=== PATIENT | female | born 1950 | race Caucasian/White ===

== ENCOUNTER 2021-02-15 12:12 | Inpatient (IN) | payer MEDICARE, OTHER ==
[~2021-02-15] VITALS: Ht 175.3 cm; Wt 117.0 kg
[~2021-02-15 12:12] MED LIST: BETAPACE80 MG PO; BUSPIRONE HCL15 MG PO; CARTIA XT120 MG PO; COZAAR50 MG PO; DULOXETINE HCL60 MG PO; ELIQUIS5 MG PO; ISOSORBIDE MONO60 MG PO; LASIX20 MG PO; LIPITOR40 M1 PO; METFORMIN HCL500 MG PO; SOTALOL80 MG PO
[2021-02-15 12:52] LABS: BASOPHIL 0.8 % (0-2); EOSINOPHIL 1.4 % (0-7); HCT 45.6 % (37.0-47.0); LYMPHOCYTE 14.4 % (15-48); MCH 23.5 pg (25.0-31.0); MCHC 30.7 g/dL (32.0-36.0); MCV 76.4 fL (78.0-100.0); MPV 10.3 fL (6.0-9.5); NEUTROPHIL 75.8 % (41-80); NRBC 0; PLT 383 K/uL (150-400); RBC 5.97 M/uL (4.20-5.40); RDW 16.4 % (11.5-14.0); WBC 11.1 K/uL (4.0-10.5)
[2021-02-15 12:57] LABS: INR 1.45 (0.9-1.2); PROTHROMBIN TIME 16.9 SECONDS (11.8-13.4); PTT 35.1 SECONDS (24.4-34.7)
[2021-02-15 13:17] LABS: ALBUMIN 3.9 g/dL (3.4-5.0); BILIRUBIN - TOTAL 1.6 mg/dL (0.2-1.0); BUN/CREAT RATIO (CALC) 19.1 RATIO; CREATININE 1.41 mg/dL (0.51-0.95); GLOBULIN (CALCULATION) 2.8 g/dL; POTASSIUM 3.3 mmol/L (3.5-5.1); TOTAL PROTEIN 6.7 g/dL (6.4-8.2)
[2021-02-15 18:02] LABS: CORONAVIRUS 2019 SARS-COV-2 NEGATIVE (NEGATIVE); INFLUENZA A NAA NEGATIVE (NEGATIVE)
[2021-02-16 11:01] LABS: BASOPHIL 0.8 % (0-2); EOSINOPHIL 1.8 % (0-7); HCT 41.3 % (37.0-47.0); HGB 12.9 g/dl (12.5-16.0); LYMPHOCYTE 21.5 % (15-48); MCH 23.4 pg (25.0-31.0); MCHC 31.2 g/dL (32.0-36.0); MONOCYTE 10.7 % (0-12); MPV 10.3 fL (6.0-9.5); NEUTROPHIL 64.5 % (41-80); NRBC 0; PLT 343 K/uL (150-400); RBC 5.51 M/uL (4.20-5.40); RDW 16.5 % (11.5-14.0); WBC 7.6 K/uL (4.0-10.5)
[2021-02-16 11:48] LABS: BUN/CREAT RATIO (CALC) 22.8 RATIO; CREATININE 1.23 mg/dL (0.51-0.95); FT4 (FREE T4) 1.2 ng/dL (0.76-1.46)
[2021-02-17 06:01] LABS: BASOPHIL 0.9 % (0-2); EOSINOPHIL 3.3 % (0-7); HGB 11.1 g/dl (12.5-16.0); LYMPHOCYTE 28.1 % (15-48); MCH 23.4 pg (25.0-31.0); MCHC 30.8 g/dL (32.0-36.0); MCV 75.9 fL (78.0-100.0); MONOCYTE 12.2 % (0-12); MPV 10.8 fL (6.0-9.5); NRBC 0; PLT 281 K/uL (150-400); RBC 4.74 M/uL (4.20-5.40); RDW 16.2 % (11.5-14.0); WBC 7.9 K/uL (4.0-10.5)
[2021-02-17 06:26] LABS: BUN/CREAT RATIO (CALC) 22.5 RATIO; CREATININE 1.38 mg/dL (0.51-0.95); POTASSIUM 3.8 mmol/L (3.5-5.1)
== END 2021-02-17 20:00 | disposition other institution (70) | DRG 309 ==
LOC: FER 12:12 → FTCU 02-16 03:18
PROVIDERS: Emergency Medicine; Family Medicine; Hospitalist; ADMIT Internal Medicine
DX: I48.19 Other persistent atrial fibrillation (principal); N17.9 Acute kidney failure, unspecified; Z20.822 Contact with and (suspected) exposure to COVID-19; I12.9 Hypertensive chronic kidney disease with stage 1 through stage 4 chronic kidney disease, or unspecified chronic kidney disease; N18.30 Chronic kidney disease, stage 3 unspecified; R73.03 Prediabetes; E27.8 Other specified disorders of adrenal gland; R07.89 Other chest pain; F32.A Depression, unspecified; E78.5 Hyperlipidemia, unspecified; I49.5 Sick sinus syndrome; E03.9 Hypothyroidism, unspecified; E87.6 Hypokalemia; Z96.659 Presence of unspecified artificial knee joint; Z98.890 Other specified postprocedural states; Z79.01 Long term (current) use of anticoagulants; Z79.899 Other long term (current) drug therapy; Z90.711 Acquired absence of uterus with remaining cervical stump
CPT/HCPCS: 36415; 71045; 80048; 80053; 80061; 83036; 84439; 84443; 84484; 85025; 85610; 85730; 93005; 94010; G0378; J7030; U0002